=== PATIENT | female | born 1970 | race Caucasian/White ===

== ENCOUNTER → 2017-01-13 | Outpatient (CLI) | payer BC ==
[~2017-01-13] MED LIST: LEVO175T PO; TERB250T47 PO
--- NOTE | 2017-01-14 08:28 | MAMMOGRAPHY REPORT ---
BILATERAL DIGITAL SCREENING MAMMOGRAM TOMOSYNTHESIS WITH CAD: 01/13/2017 CLINICAL HISTORY: Routine screening. Patient has no complaints. TECHNIQUE: Breast tomosynthesis in addition to standard 2D mammography was performed. Current study was also evaluated with a Computer Aided Detection (CAD) system. COMPARISON: Comparison is made to exams dated: 01/13/2016 mammogram, 01/09/2015 mammogram, 01/08/2014 m ammogram, 12/28/2012 mammogram, 12/27/2011 mammogram, and 12/24/2010 mammogram - [facility] enter. BREAST COMPOSITION: The tissue of both breasts is extremely dense, which lowers the sensitivity of m ammography. FINDINGS: No suspicious masses, calcifications, or areas of architectural distortion are noted in ei ther breast. There has been no significant interval change compared to prior exams. Scattered bilater al benign-appearing calcifications are not significantly changed. IMPRESSION: ACR BI-RADS CATEGORY 2: BENIGN There is no mammographic evidence of malignancy. A 1 year screening mammogram is recommended. The pa tient will receive written notification of the results. Approximately 10% of breast cancers are not detected with mammography. A negative mammographic report should not delay biopsy if a clinically suggestive mass is present. Vicky June M.D. ah/:01/13/2017 15:39:01 Business Services Officer: Faith NGUYEN(Meera)(), [facility] letter sent: Normal 1/2 BI-RADS Code: ACR BI-RADS Category 2: Benign
== END | disposition home or self-care (01) ==
LOC: C.MAMM 13:54
PROVIDERS: ATTEND Obstetrics & Gynecology
DX: Z12.31 Encounter for screening mammogram for malignant neoplasm of breast (principal)

== ENCOUNTER → 2017-04-05 | Outpatient (CLI) | payer BC ==
[2017-04-05 11:31] LABS: THYROID STIMULATING HORMONE 0.261 uIu/ml (0.300-4.500)
== END | disposition home or self-care (01) ==
LOC: C.LABBC 08:48
PROVIDERS: ATTEND Nurse Practitioner Family
DX: E03.9 Hypothyroidism, unspecified (principal)

== ENCOUNTER 2021-06-23 18:28 | Observation (INO) ==
[2021-06-23 19:03] LABS: Basophils # (auto) 0.04 K/uL (0-0.2); Basophils % (auto) 0.6 %; Eosinophils # (auto) 0.09 K/uL (0-0.5); Eosinophils % (auto) 1.4 %; Hematocrit (blood only) 39.6 % (37-47); Hemoglobin 13.9 g/dL (12.0-16.0); Immature Granulocytes # (auto) 0.01 K/uL (0.00-0.02); Immature Granulocytes % (auto) 0.2 %; Lymphocytes # (auto) 1.87 K/uL (1.2-3.4); Lymphocytes % (auto) 28.6 %; Mean Corpuscular Hemoglobin 31.9 pg (25-34); Mean Corpuscular Hgb Conc 35.1 g/dL (32-36); Mean Corpuscular Volume 90.8 fL (80-100); Mean Platelet Volume 9.7 fL (7.4-10.4); Monocytes # (auto) 0.59 K/uL (0.11-0.59); Neutrophils # (auto) 3.93 K/uL (1.4-6.5); Neutrophils % (auto) 60.2 %; Platelet Count 249 K/uL (130-400); RDW Coefficient of Variation 12.4 % (11.5-14.5); RDW Standard Deviation 41.3 fL (36.4-46.3); Red Blood Count 4.36 M/uL (4.2-5.4); White Blood Count 6.53 K/uL (4.8-10.8)
[2021-06-23 19:19] LABS: INR 1.1 (0.9-1.1); Partial Thromboplastin Ratio 0.9; Partial Thromboplastin Time 24.8 Seconds (21.0-31.0); Prothrombin Time 11.3 Seconds (9.0-12.0)
[2021-06-23 19:33] LABS: Troponin I < 0.03 ng/ml (0-0.04)
[2021-06-23 19:35] LABS: Alanine Aminotransferase 17 U/L (7-52); Albumin Globulin Ratio 1.2 (0.9-2); Albumin Level 4.3 gm/dl (3.4-5.0); Alkaline Phosphatase 113 U/L (34-104); Anion Gap 6 (3-11); Aspartate Aminotransferase 18 U/L (13-39); BUN Creatinine Ratio 18.7 (10-20); Bilirubin,Total 0.5 mg/dl (0.2-1.0); Blood Urea Nitrogen 20 mg/dl (6-23); Calcium 10.1 mg/dl (8.5-10.1); Carbon Dioxide 29 mmol/L (21-32); Chloride 104 mmol/L (98-107); Creatinine Clr Calc Pharmacy 60.5 ml/min; Est GFR (African American) 69.6 ml/min; Est GFR (Non-African American) 60.1 ml/min; Globulin 3.5 gm/dl (2.5-4.0); Glucose 108 mg/dl (70-99(Fasting)); Sodium 139 mmol/L (136-145); Total Protein 7.8 gm/dl (6.0-8.3)
--- NOTE | 2021-06-23 19:51 | XRay Report ---
XR chest 1V portable HISTORY: Atypical Chest Pain COMPARISON: Chest 03/31/2021. FINDINGS: The lungs are clear. Cardiac silhouette is normal in size. No pleural effusions. No pneumot horax. IMPRESSION: No acute process. ACT 112: Negative or not required by law. Electronically signed by: Yan Kim M.D. 06/23/2021 7:50 PM
[2021-06-23] MEDS ORDERED: ASPIRIN CHEW 324 MG PO STA (22:19)
--- NOTE | 2021-06-23 23:19 | Emergency Department Note ---
History of Present Illness General Chief Complaint: Chest Pain Stated Complaint: CHEST PAIN Time Seen by Provider: 06/23/21 21:12 History of Present Illness Provider Complaint: chest pain Time: 17:30 Duration: intermittent Onset: during exertion Pain Location: left chest Pain Radiation: LUE Severity: mild Maximum Pain Intensity: 3 Current Pain Intensity: 0 Quality: + aching and + heaviness Relieved By: + rest Exacerbated By: + exertion Context: no recent illness, no recent surgery, no recent immobilization, no recent travel, no trauma/injury, no new medications or no history of DVT/PE Associated symptoms: + palpitations; no nausea, no vomiting, no diaphoresis, no dyspnea, no syncope, no fever, no cough or no leg swelling Treatments prior to arrival: none Home Medications Medication Instructions Recorded Confirmed Type bupropion HCl 100 mg tablet,12 hr 100 mg PO DAILY #90 ea 11/20/20 06/23/21 Rx sustained-release (Wellbutrin SR) levothyroxine 150 mcg tablet 150 mcg PO DAILY #90 tab 02/23/21 06/23/21 Rx Allergies Allergy/AdvReac Type Severity Reaction Status Date / Time No Known Allergies Allergy Unknown Verified 06/23/21 21:42 Past Med/Surg History Medical History Abnormal finding on mammography Exercise-induced asthma Hx of cardiac murmur ECHO DONE OVER 10 YEARS AGO AFTER SYNCOPAL EPISODE (NO CARDS) Hypothyroidism Jaw clicking Parotid mass HX OF Polycystic ovarian syndrome Situational anxiety "RELATED COVID" Surgical History Adenoma NEAR PAROTID GLAND (BENIGN) History of section, low transverse X 2 History of laparoscopy History of tubal ligation S/P endometrial ablation [place] teeth removed Family History Father Diabetes Family history of diabetes mellitus Mother Hypertension Daughter Microcephaly Brother Myocardial infarction Family history of diabetes mellitus Aunt Breast cancer Other No family history of adverse response to anesthesia Denies family history of Colon cancer Ovarian cancer Prostate cancer Social History Smoking Status: Never smoker Second Hand Exposure: Yes ( A CHILD); Hx Alcohol Use: Yes Alcohol type: beer Hx Substance Use: No Preferred Language: Kenyan Visual Impairment: No Limitations Hearing Ability: Normal Installment Account Checker Required: No Beliefs That Will Affect Care: None marital status: Current Living Situation: Family current occupational status: 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 Feels Safe at Home: Yes Childhood Exposure to Second-Hand Smoke: Yes Dental Care, Regularly: Yes Physical Activity Frequency: 3-4 Times per Week Assistive Devices: Glasses Review of Systems A total of 10 systems reviewed and were otherwise negative Physical Exam Vital Signs Vital Signs - 24 hr 06/23/21 18:42 06/23/21 21:18 06/23/21 23:00 Temperature 36.9 C Temperature Source Temporal Artery Scan Pulse Rate 98 H Pulse Rate [Finger] 68 61 Respiratory Rate 16 18 18 Respiratory Effort / Characteristics Non-Labored Spontaneous Non-Labored Spontaneous Respiratory Depth Normal Normal Respiratory Pattern Regular Blood Pressure 137/92 Blood Pressure [Right Arm] 140/89 145/86 H Blood Pressure Mean 107 Blood Pressure Mean [Right Arm] 106 105 Blood Pressure Position [Right Arm] Lying Pulse Oximetry 100 99 98 Oxygen Delivery Method Room Air Room Air Room Air Sepsis Recent Fever Within 48 Hours No Sepsis New/Unexplained Change in Mental Status N/A Sepsis Action Taken by Nursing No Action Required Physical Exam GENERAL: She is oriented to person, place, and time. She appears well-developed and well-nourished. She does not appear distressed. HENT: Exam performed. -Head: Normocephalic and atraumatic. -Right Ear: External ear normal. No mastoid tenderness. -Left Ear: External ear normal. No mastoid tenderness. -Mouth/Throat: The oropharynx is clear and moist. No trismus in the jaw. No dental abscesses or uvula swelling. No oropharyngeal exudate or tonsillar abscesses. EYES: Conjunctivae and EOM are normal. Pupils are equal, round, and reactive to light. Right eye exhibits no discharge. Left eye exhibits no discharge. No scleral icterus. NECK: Normal range of motion. Neck supple. No JVD present. No spinous process tenderness present. No carotid bruit present. No rigidity. No tracheal deviation and normal range of motion present. No Brudzinski's sign and no Kernig's sign noted. CV: Normal rate, regular rhythm, normal heart sounds and intact distal pulses. There is no peripheral edema. Palpable radial pulses bue. PULM/CHEST: Effort normal and breath sounds normal. No respiratory distress. No stridor. She has no wheezes. She has no rales. -Chest Wall: She exhibits no tenderness. ABD: The abdomen is soft. Bowel sounds are normal. She has no distension. No mass is present. There is no tenderness. There is no rebound, no guarding, no Owens's sign and no tenderness at McBurney's point. Rovsig negative MUSC/SKEL: Normal range of motion. There is no peripheral edema, tenderness or deformity. LYMPH: No cervical adenopathy. NEURO: She is alert and oriented to person, place, and time. She has normal strength. No cranial nerve deficit or sensory deficit. Coordination and gait normal. GCS eye subscore is 4. GCS verbal subscore is 5. GCS motor subscore is 6. Cerebellar tests wnl. SKIN: Skin is warm and dry. She is not diaphoretic. PSYCH: She has a normal mood and affect. Behavior is normal. Judgment and thought content normal. Course Course 2111: The patient was evaluated in room B3. A complete history and physical exam was performed Cardiac monitoring: An order was placed for continuous cardiac monitoring. The monitor shows a rate of 60 with sinus rhythm Administered Medications Discontinued Medications Aspirin (Aspirin Chew 324 Mg) 324 mg PO NOW STA Stop: 06/23/21 22:20 Last Admin: 06/23/21 22:41 Dose: 324 mg Documented by: [id number] Medical Decision Making Laboratory Data Result diagrams: 06/23/21 18:34 06/23/21 18:34 Labs: Lab Results 06/23/21 06/23/21 06/23/21 Range/Units 18:34 18:34 18:34 WBC 6.53 (4.8-10.8) K/uL RBC 4.36 (4.2-5.4) M/uL Hgb 13.9 (12.0-16.0) g/dL Hct 39.6 (37-47) % MCV 90.8 (80-100) fL MCH 31.9 (25-34) pg MCHC 35.1 (32-36) g/dL RDW Std Deviation 41.3 (36.4-46.3) fL RDW Coeff of Rosa 12.4 (11.5-14.5) % Plt Count 249 (130-400) K/uL MPV 9.7 (7.4-10.4) fL Immature Gran % (Auto) 0.2 % Neut % (Auto) 60.2 % Lymph % (Auto) 28.6 % Dare % (Auto) 9.0 % Eos % (Auto) 1.4 % Baso % (Auto) 0.6 % Neut # (Auto) 3.93 (1.4-6.5) K/uL Lymph # (Auto) 1.87 (1.2-3.4) K/uL Dare # (Auto) 0.59 (0.11-0.59) K/uL Eos # (Auto) 0.09 (0-0.5) K/uL Baso # (Auto) 0.04 (0-0.2) K/uL Immature Gran # (Auto) 0.01 (0.00-0.02) K/uL PT 11.3 (9.0-12.0) Seconds INR 1.1 (0.9-1.1) APTT 24.8 (21.0-31.0) Seconds PTT Ratio 0.9 Sodium 139 (136-145) mmol/L Potassium 4.0 (3.5-5.1) mmol/L Chloride 104 (98-107) mmol/L Carbon Dioxide 29 (21-32) mmol/L Anion Gap 6 (3-11) BUN 20 (6-23) mg/dl Creatinine 1.07 (0.6-1.2) mg/dl Est Cr Clr Drug Dosing 60.5 ml/min Est GFR ( Amer) 69.6 ml/min Est GFR (Non-Af Amer) 60.1 ml/min BUN/Creatinine Ratio 18.7 (10-20) Glucose 108 H (70-99(Fasting)) mg/dl Calcium 10.1 (8.5-10.1) mg/dl Total Bilirubin 0.5 (0.2-1.0) mg/dl AST 18 (13-39) U/L ALT 17 (7-52) U/L Alkaline Phosphatase 113 H (34-104) U/L Troponin I < 0.03 (0-0.04) ng/ml Total Protein 7.8 (6.0-8.3) gm/dl Albumin 4.3 (3.4-5.0) gm/dl Globulin 3.5 (2.5-4.0) gm/dl Albumin/Globulin Ratio 1.2 (0.9-2) Imaging Data Chest x-ray: Radiologist's impression: Chest X-Ray 06/23/21 18:44 XR chest 1V portable HISTORY: Atypical Chest Pain COMPARISON: Chest 03/31/2021. FINDINGS: The lungs are clear. Cardiac silhouette is normal in size. No pleural effusions. No pneumothorax. IMPRESSION: No acute process. ACT 112: Negative or not required by law. Electronically signed by: Yan Kim M.D. 06/23/2021 7:50 PM ECG Data Indication: chest pain Rate (beats per minute): 83 Rhythm: normal sinus Findings: no ST depression, no ST elevation or no prolonged QT Additional Comments: QRS 74 MDM Narrative Vital signs stable. Labs and imaging within normal limits. Patient was offered inpatient observation versus delta troponin and if negative follow-up with cardiology. Patient elected to stay for inpatient observation. Patient will be admitted to [facility] hospitalist service Dr. Bonner team notified. Impression & Plan Chest pain Discharge Plan Visit Data Chief Complaint: Chest Pain Stated Complaint: CHEST PAIN Discharge Problem: Chest pain Patient Disposition: Being Evaluated by Hospitalist Forms Stand Alone Forms: [facility] Prescriptions Prescriptions: No Action levothyroxine 150 mcg tablet 150 mcg PO DAILY Qty: 90 RF: 1 bupropion HCl [Wellbutrin SR] 100 mg tablet sustained-release 12 hr 100 mg PO DAILY Qty: 90 RF: 2 Referrals Referrals: Jose Longoria III, CRNP [Primary Care Provider] -
--- NOTE | 2021-06-23 23:21 | History & Physical Report ---
Date of Service June 23, 2021 Assessment & Plan (1) Palpitations: Plan: Patient complains of intermittent palpitations over the past 24 hours, with no other associated findings. The patient will be admitted to telemetry for serial cardiac enzymes, serial EKG's, cardiac rhythm monitoring and a 2-D echocardiogram with Dopplers. Normal troponin, normal normal CBC with differential and chemistry profile including potassium and magnesium TSH of 0.394 is lower than over the past 5 years, if no other reason is found, and palpitations are persistent, her levothyroxine dosing may possibly be decreased in the outpatient setting (2) Hypothyroidism: Plan: Levothyroxine 150 mcg daily, as noted above, may need to be addressed in the outpatient setting (3) Hyperlipidemia: Plan: On no specific cholesterol medication at this time Check a fasting lipid panel (4) Depression with anxiety: Plan: Continue bupropion SR 100 mg p.o. twice daily (5) Tricuspid regurgitation: (6) Mitral regurgitation: History of Present Illness Chief Complaint: The patient presents to the emergency department with complaint of palpitations intermittently over the past 24 hours Primary Care Provider: Jose Longoria III, SCOTT The patient is a 50-year-old female with a past medical history including tricuspid regurgitation,, mitral regurgitation, reactive airways disease, hypothyroidism, hyperlipidemia and depression with anxiety. She presents to the emergency department with intermittent episodes of palpitations over the past 24 hours. She has had palpitations in the past, but nothing similar in frequency or intensity as to now. She denies any change in bowel or bladder habits, and oral intake of liquids or solids. She has had no recent travels or sick exposures. Allergies Allergy/AdvReac Type Severity Reaction Status Date / Time No Known Allergies Allergy Unknown Verified 06/23/21 21:42 Home Medications Medication Instructions Recorded Confirmed Type bupropion HCl 100 mg tablet,12 hr 100 mg PO DAILY #90 ea 11/20/20 06/23/21 Rx sustained-release (Wellbutrin SR) levothyroxine 150 mcg tablet 150 mcg PO DAILY #90 tab 02/23/21 06/23/21 Rx Past Med/Surg History Medical History Abnormal finding on mammography Exercise-induced asthma Hx of cardiac murmur ECHO DONE OVER 10 YEARS AGO AFTER SYNCOPAL EPISODE (NO CARDS) Hypothyroidism Jaw clicking Parotid mass HX OF Polycystic ovarian syndrome Situational anxiety "RELATED COVID" Surgical History Adenoma NEAR PAROTID GLAND (BENIGN) History of section, low transverse X 2 History of laparoscopy History of tubal ligation S/P endometrial ablation [place] teeth removed Family History Father Diabetes Family history of diabetes mellitus Mother Hypertension Daughter Microcephaly Brother Myocardial infarction Family history of diabetes mellitus Aunt Breast cancer Other No family history of adverse response to anesthesia Denies family history of Colon cancer Ovarian cancer Prostate cancer Social History Smoking Status: Never smoker Second Hand Exposure: Yes ( A CHILD); Hx Alcohol Use: Yes Alcohol type: beer Hx Substance Use: No Preferred Language: Hebrew Communication Ability: Effective Visual Impairment: No Limitations Hearing Ability: Normal Life Agent Required: No Beliefs That Will Affect Care: None marital status: Current Living Situation: Alone Current Living Situation Comment: Lives separted from current occupational status: employed 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 Feels Safe at Home: Yes Safety Concerns: Feels Safe At This Time Childhood Exposure to Second-Hand Smoke: Yes Dental Care, Regularly: Yes Physical Activity Frequency: 3-4 Times per Week Assistive Devices: Glasses Review of Systems Review of Systems: The patient denies chest pain, shortness of breath, dyspnea on exertion, cough, lower extremity swelling, sore throat, fevers, chills, sweats, weight change, fatigue, nausea, vomiting, diarrhea , constipation, abdominal pain, pelvic pain, blood in urine or stool, dysuria, urinary frequency or urgency, lightheadedness, dizziness, headache, memory loss, loss of consciousness, rash, abnormal bruising or bleeding, imbalance, focal or generalized weakness, numbness or tingling in arms or legs, generalized arthralgias or myalgias, back or neck pain, or night sweats. The review of systems is otherwise negative other than for that already noted above, and at least 10 systems have been reviewed. Physical Exam Physical Exam: The patient is awake, alert and oriented 3, well developed and well nourished, normocephalic and atraumatic, lying in bed and in no acute distress. HEENT--PERRL, EOMI, mucous membranes and oropharynx normal. Neck--supple. No JVD. No bruits. Thyroid normal, trachea midline, no kati opathy. Heart--normal S1 and S2. No murmurs, rubs or gallops. Lungs--clear bilaterally, no respiratory distress, no accessory muscle use. Abdomen--normal bowel sounds and soft. Nontender. Nondistended, no hernias or masses, no organomegaly. Extremities--no cyanosis or clubbing. No edema. Dermatologic--normal skin turgor, normal color, no abnormal lymph nodes, no rash. Neurologic--cranial nerves II through XII grossly intact. Rheumatologic--normal range of motion. Psychiatric--normal affect. Results & Data Results & Data ([facility]) Vital Signs (Past 12 Hours) Vital Signs Temp Pulse Pulse Resp BP BP Pulse Ox 06/23/21 23:00 61 18 145/86 H 98 06/23/21 21:18 68 18 140/89 99 06/23/21 18:42 36.9 C 98 H 16 137/92 100 Laboratory Results Laboratory Results WBC 6.53 K/uL (4.8-10.8) 06/23/21 18:34 RBC 4.36 M/uL (4.2-5.4) 06/23/21 18:34 Hgb 13.9 g/dL (12.0-16.0) 06/23/21 18:34 Hct 39.6 % (37-47) 06/23/21 18:34 MCV 90.8 fL (80-100) 06/23/21 18:34 MCH 31.9 pg (25-34) 06/23/21 18:34 MCHC 35.1 g/dL (32-36) 06/23/21 18:34 RDW Std Deviation 41.3 fL (36.4-46.3) 06/23/21 18:34 RDW Coeff of Rosa 12.4 % (11.5-14.5) 06/23/21 18:34 Plt Count 249 K/uL (130-400) 06/23/21 18:34 MPV 9.7 fL (7.4-10.4) 06/23/21 18:34 Immature Gran % (Auto) 0.2 % 06/23/21 18:34 Neut % (Auto) 60.2 % 06/23/21 18:34 Lymph % (Auto) 28.6 % 06/23/21 18:34 [place] % (Auto) 9.0 % 06/23/21 18:34 Eos % (Auto) 1.4 % 06/23/21 18:34 Baso % (Auto) 0.6 % 06/23/21 18:34 Neut # (Auto) 3.93 K/uL (1.4-6.5) 06/23/21 18:34 Lymph # (Auto) 1.87 K/uL (1.2-3.4) 06/23/21 18:34 [place] # (Auto) 0.59 K/uL (0.11-0.59) 06/23/21 18:34 Eos # (Auto) 0.09 K/uL (0-0.5) 06/23/21 18:34 Baso # (Auto) 0.04 K/uL (0-0.2) 06/23/21 18:34 Immature Gran # (Auto) 0.01 K/uL (0.00-0.02) 06/23/21 18:34 PT 11.3 Seconds (9.0-12.0) 06/23/21 18:34 INR 1.1 (0.9-1.1) 06/23/21 18:34 APTT 24.8 Seconds (21.0-31.0) 06/23/21 18:34 PTT Ratio 0.9 06/23/21 18:34 Sodium 139 mmol/L (136-145) 06/23/21 18:34 Potassium 4.0 mmol/L (3.5-5.1) 06/23/21 18:34 Chloride 104 mmol/L (98-107) 06/23/21 18:34 Carbon Dioxide 29 mmol/L (21-32) 06/23/21 18:34 Anion Gap 6 (3-11) 06/23/21 18:34 BUN 20 mg/dl (6-23) 06/23/21 18:34 Creatinine 1.07 mg/dl (0.6-1.2) 06/23/21 18:34 Est Cr Clr Drug Dosing 60.5 ml/min 06/23/21 18:34 Est GFR ( Amer) 69.6 ml/min 06/23/21 18:34 Est GFR (Non-Af Amer) 60.1 ml/min 06/23/21 18:34 BUN/Creatinine Ratio 18.7 (10-20) 06/23/21 18:34 Glucose 108 mg/dl (70-99(Fasting)) H 06/23/21 18:34 Calcium 10.1 mg/dl (8.5-10.1) 06/23/21 18:34 Magnesium 2.0 mg/dl (1.7-2.4) 06/23/21 18:34 Total Bilirubin 0.5 mg/dl (0.2-1.0) 06/23/21 18:34 AST 18 U/L (13-39) 06/23/21 18:34 ALT 17 U/L (7-52) 06/23/21 18:34 Alkaline Phosphatase 113 U/L (34-104) H 06/23/21 18:34 Troponin I < 0.03 ng/ml (0-0.04) 06/23/21 18:34 Total Protein 7.8 gm/dl (6.0-8.3) 06/23/21 18:34 Albumin 4.3 gm/dl (3.4-5.0) 06/23/21 18:34 Globulin 3.5 gm/dl (2.5-4.0) 06/23/21 18:34 Albumin/Globulin Ratio 1.2 (0.9-2) 06/23/21 18:34 TSH 0.394 uIu/ml (0.300-4.500) 06/23/21 18:34 SARS-CoV-2, RNA, NAAT NEGATIVE (NEGATIVE) 06/23/21 22:44 Impressions Chest X-Ray 06/23/21 18:44 XR chest 1V portable HISTORY: Atypical Chest Pain COMPARISON: Chest 03/31/2021. FINDINGS: The lungs are clear. Cardiac silhouette is normal in size. No pleural effusions. No pneumothorax. IMPRESSION: No acute process. ACT 112: Negative or not required by law. Electronically signed by: Yan Kim M.D. 06/23/2021 7:50 PM Code Status & VTE Plan Code Status Full code VTE Prophylaxis Plan VTE Prophylaxis will be ordered: Yes PG Care Time/CCT Total # of Minutes Spent Total Time Spent with Patient: Total time spent is greater than 50% in coordination of care (as documented) at patient's floor/unit and/or counseling patient: Coding Level of Care Code INT OBSERVATION CARE 70M LVL 3 Diagnoses Palpitations R00.2 Tricuspid regurgitation I07.1 Mitral regurgitation I34.0 Hypothyroidism E03.9 Hyperlipidemia E78.5 Depression with anxiety F41.8
[2021-06-24] MEDS ORDERED: ONDANSETRON INJ 2 MG/ML 2 ML VIAL IV PRN (00:28)
[2021-06-24] MEDS ORDERED: ACETAMINOPHEN 325 MG TAB PO PRN (00:28)
[2021-06-24] MEDS ORDERED: NITROGLYCERIN SL 0.4 MG/TAB TAB SL PRN (00:28)
[2021-06-24] MEDS ORDERED: LEVOTHYROXINE SODIUM 150 MCG TABLET PO SCH (06:30)
[2021-06-24 08:06] LABS: Troponin I < 0.03 ng/ml (0-0.04)
[2021-06-24 08:11] LABS: Albumin Level 3.9 gm/dl (3.4-5.0); Anion Gap 7 (3-11); BUN Creatinine Ratio 17.6 (10-20); Blood Urea Nitrogen 18 mg/dl (6-23); Calcium 9.6 mg/dl (8.5-10.1); Carbon Dioxide 27 mmol/L (21-32); Chloride 106 mmol/L (98-107); Creatinine Clr Calc Pharmacy 69.1 ml/min; Est GFR (African American) 73.8 ml/min; Est GFR (Non-African American) 63.6 ml/min; Glucose 79 mg/dl (70-99(Fasting)); Magnesium 1.9 mg/dl (1.7-2.4); Phosphorus 4.7 mg/dl (2.5-4.9); Sodium 140 mmol/L (136-145)
[2021-06-24] MEDS ORDERED: buPROPion SR 100 MG TABCR PO SCH (09:00)
--- NOTE | 2021-06-24 09:58 | XCELERA ---
[id number] \\[id number]
--- NOTE | 2021-06-24 16:59 | XCELERA ---
[id number] \\[id number]\PDF_[email or web address]\[id number]___[id number]
[2021-06-24] MEDS ORDERED: OPTIRAY 320 125ml IV ONE (17:45)
--- NOTE | 2021-06-24 18:54 | CT Scan Report ---
CT angio chest PE protocol CT DOSE: 293.74 mGy.cm HISTORY: 50 years-old Female with recurrent episodes of chest pain; eval PE. Acute shortness of sonia ath TECHNIQUE: Multiple CTA images of the chest were obtained after the intravenous administration of 120 ml Optiray. Coronal and sagittal MIPS were obtained from the axial data set and were submitted for review. All measurements were obtained according to NASCET criteria. A dose lowering technique was u tilized adhering to the principles of ALARA. COMPARISON: Chest radiograph 06/23/2021 FINDINGS: CTA: There is adequate opacification of the pulmonary arteries to the level of the subsegmental branches w ithout convincing evidence of acute pulmonary embolism. Normal thoracic aorta.Heart size is normal. CT CHEST: No dominant thyroid nodule is seen. No pathologically adenopathy by CT size criteria. There is no pn eumothorax, pleural effusion or focal airspace consolidation. There is borderline wall thickening of the distal esophagus. The stomach is distended. Moderate colo lee ann fecal retention. The osseous structures appear intact. IMPRESSION: Unremarkable CTA of the chest. No pulmonary emboli. ACT 112: Negative or not required by law. The above report was generated using voice recognition software. It may contain grammatical, syntax o r spelling errors. Electronically signed by: Daniel Dyer M.D. 06/24/2021 6:51 PM
--- NOTE | 2021-06-24 18:57 | Discharge Summary ---
Date of Service June 24, 2021 Admission HPI Per Admitting Provider The patient is a 50-year-old female with a past medical history including tricuspid regurgitation,, mitral regurgitation, reactive airways disease, hypothyroidism, hyperlipidemia and depression with anxiety. She presents to the emergency department with intermittent episodes of palpitations over the past 24 hours. She has had palpitations in the past, but nothing similar in frequency or intensity as to now. She denies any change in bowel or bladder habits, and oral intake of liquids or solids. She has had no recent travels or sick exposures. Discharge Data Allergies Allergy/AdvReac Type Severity Reaction Status Date / Time No Known Allergies Allergy Unknown Verified 06/23/21 21:42 Consultations 06/23/21 22:20 ED Decision to Admit Stat Ordered Studies 06/24/21 17:31 CT angio chest PE protocol Urgent Hospital Course (1) Palpitations: Patient complains of intermittent palpitations over the past 24 hours, with no other associated findings. The patient will be admitted to telemetry for serial cardiac enzymes, serial EKG's, cardiac rhythm monitoring and a 2-D echocardiogram with Dopplers. Normal troponin, normal normal CBC with differential and chemistry profile including potassium and magnesium TSH of 0.394 is lower than over the past 5 years, if no other reason is found, and palpitations are persistent, her levothyroxine dosing may possibly be decreased in the outpatient setting (2) Hypothyroidism: Levothyroxine 150 mcg daily, as noted above, may need to be addressed in the outpatient setting (3) Hyperlipidemia: On no specific cholesterol medication at this time Check a fasting lipid panel (4) Depression with anxiety: Continue bupropion SR 100 mg p.o. twice daily (5) Tricuspid regurgitation: (6) Mitral regurgitation: Discharge Plan Discharge Items Patient Disposition: Home - Self-Care Reason For Visit: PALPITATIONS Discharge Diagnosis: 1. palpitations/fluttering of the heart - exact cause uncertain, but we did observe "extra beats" on the heart monitor at times. 30-day event ekg monitor recommended. 2. chest pain - normal stress test, normal echocardiogram, and normal blood work for the heart. CT of the chest Activity: As commented below Activity Comment: gradually resume normal activities over the next 2-3 days Non-emergency contact: Primary Care Provider Call non-emergency contact if: you have any medication questions and your symptoms worsen Follow-up/Referrals: Jose Longoria III, CRNP [Primary Care Provider] - (see Mr Longoria within 1 week ) Diet: Regular Addtl Attending Provider Instructions: Mrs Conner, Iker were admitted to the hospital for fluttering of the heart/palpitations along with episodes of chest discomfort. We performed a series of tests including blood work for the heart, echoc ardiogram, and stress test along with EKGs. The blood work for the heart ("troponin level") was normal x 3. The echocardiogram showed excellent heart function and normal heart valves. We had you complete a stress test and this returned normal. The stress test tries to determine if there are blockages in the arteries of the heart that is causing your pain. Your EKGs were also normal. Heart monitoring did show "PVCs" (extra beats) on occasion but they were not frequent. We did not see rapid heart rhythms such as SVT, a.fib, etc. Some people do feel PVCs, especially when they are frequent. PVCs do occur more often with excessive caffeine use. Since the heart studies were normal/negative we then performed a CT of the chest. This did not show any blood clots, pneumonia, tumors, or other abnormalities of the lungs. The esophagus appeared slightly thickened which can be seen with gastroesophageal reflux disease. Incidentally there was a fair amount of stool on your CT scan. At this time we are not fully certain what has caused your pain episodes in the past or present. It could be due to reflux disease, musculoskeletal causes, or other etiologies. Given the CT findings showing mild esophageal thickening I would recommend starting an acid medical office technology instructor. Recommendations - 1. for the palpitations - we will set you up with a 30-day heart monitor. This will be mailed to you at home within the next week with instructions on its use. The monitor results will be read by [facility] at the end of the 30 days. The results will go to your family provider. 2. for possible reflux - take pantoprazole 40mg once daily. Start your first dose tonight, then take every morning thereafter. 3. limit caffeine consumption to 1-2 cups of caffeinated beverages/day as this will help both #1 and #2 above. 4. please see Jose Longoria within 1 week. You may need to see a GI specialist. 5. despite the negative/normal heart tests - if you were to experience recurrent chest pain episodes - you would be referred to cardiology. Additional tests would possibly be needed (heart catheterization, etc). Follow-up - Jose Longoria within 1 week Return to [facility] if - * you have severe, persistent chest pain episodes * you have shortness of breath * you develop nausea and/or vomiting - especially if associated with chest pain/shortness of breath * you have abdominal pains * any other concerns Continue to feel better and it was our pleasure to care for you! Dr Paige Pending Studies at Discharge: No Stand-Alone Forms: [facility], Smoking Cessation Medications and DC Order Prescriptions: New pantoprazole 40 mg tablet,delayed release (DR/EC) 40 mg PO QAM Qty: 30 RF: 2 Continued levothyroxine 150 mcg tablet 150 mcg PO DAILY Qty: 90 RF: 1 bupropion HCl [Wellbutrin SR] 100 mg tablet sustained-release 12 hr 100 mg PO DAILY Qty: 90 RF: 2 Discharge Orders: Discharge Order (Routine); Ordered 06/24/21 Ordered By: Johan Paige Admission Data Admit Date/Time: 06/23/21 23:20 Attending Provider: Johan Paige Admit Provider: Mike Ortiz Primary Care Provider: Jose Longoria III Other Providers: Mike Ortiz Coding Diagnoses Palpitations R00.2 Hypothyroidism E03.9 Hyperlipidemia E78.5 Depression with anxiety F41.8 Tricuspid regurgitation I07.1 Mitral regurgitation I34.0
--- NOTE | 2021-06-24 21:34 | Electrocardiogram Report ---
Test Reason : Blood Pressure : / mmHG Vent. Rate : 083 BPM Atrial Rate : 083 BPM P-R Int : 170 ms QRS Dur : 074 ms QT Int : 388 ms P-R-T Axes : 061 012 051 degrees QTc Int : 455 ms Normal sinus rhythm with sinus arrhythmia Low voltage QRS Borderline ECG When compared with ECG of 31-MAR-2021 02:25, No significant change was found Confirmed by Murphy Adams ([id number]) on 06/24/2021 9:34:02 PM Referred By: REFERRED SELF Confirmed By:Murphy Adams
--- NOTE | 2021-06-24 21:48 | Electrocardiogram Report ---
Test Reason : Blood Pressure : / mmHG Vent. Rate : 061 BPM Atrial Rate : 061 BPM P-R Int : 174 ms QRS Dur : 080 ms QT Int : 424 ms P-R-T Axes : 056 -09 046 degrees QTc Int : 426 ms Normal sinus rhythm Low voltage QRS Borderline ECG When compared with ECG of 23-JUN-2021 18:47, No significant change was found Confirmed by Murphy Adams ([id number]) on 06/24/2021 9:48:03 PM Referred By: REFERRED SELF Confirmed By:Murphy Adams
== END 2021-06-24 19:28 | disposition home or self-care (01) ==
LOC: ED 18:28 → 2N 18:28 → SUATTDRO 23:20 → 2N 06-24 00:03